=== PATIENT | female | born 1930 | race Caucasian/White ===

== ENCOUNTER 2021-02-24 11:42 | Observation (INO) | payer MEDICARE, BC ==
[2021-02-24 12:20] LABS: Basophils # (A) 0.1 k/uL (0-0.2); Basophils % (A) 1 %; Eosinophils # (A) 0.2 k/uL (0-0.7); Eosinophils % (A) 3 %; HCT 40.6 % (34.0-46.0); HGB 13.1 gm/dL (11.4-16.0); Lymphocytes # (A) 1.9 k/uL (1.0-4.8); Lymphocytes % (A) 23 %; MCH 31.4 pg (25.0-35.0); MCHC 32.3 g/dL (31.0-37.0); MCV 97.3 fL (80.0-100.0); Mean Platelet Volume 8.9; Monocytes # (A) 0.6 k/uL (0-1.0); Monocytes % (A) 7 %; Neutrophils # (A) 5.3 k/uL (1.3-7.7); Neutrophils % (A) 64 %; Platelet Count 232 k/uL (150-450); RBC 4.17 m/uL (3.80-5.40); RDW 12.8 % (11.5-15.5); WBC 8.3 k/uL (3.8-10.6)
--- NOTE | 2021-02-24 12:30 | XR ---
EXAMINATION TYPE: XR chest 2V DATE OF EXAM: 02/24/2021 COMPARISON: 04/21/2011 HISTORY: Dysrhythmia TECHNIQUE: Frontal and lateral views of the chest are obtained. FINDINGS: The lungs are grossly clear. The right peritracheal prominence is unchanged. Cardiac silhouette is unchanged. IMPRESSION: No acute cardiopulmonary process.
[2021-02-24 12:38] LABS: Albumin 4.5 g/dL (3.5-5.0); Calcium 9.5 mg/dL (8.4-10.2); Total Bilirubin 0.7 mg/dL (0.2-1.3); Total Protein 7.5 g/dL (6.3-8.2)
[2021-02-24 12:42] LABS: Magnesium 2.2 mg/dL (1.6-2.3)
--- NOTE | 2021-02-24 12:52 | CT ---
EXAMINATION TYPE: CT brain wo con DATE OF EXAM: 02/24/2021 COMPARISON: None HISTORY: Lt arm numbness CT DLP: 1080.[address] of the brain was performed. The ventricles, basal cisterns and sulci overlying the cerebral convexities demonstrate mild enlargem ent. There is no evidence for intracranial hemorrhage or sulcal effacement. There is decreased attenuation about the periventricular white matter and deep white matter of both c erebral hemispheres, compatible with chronic small vessel ischemia. Differential diagnosis does inclu de demyelination. No mass effects are seen.No midline shift. Osseous calvarium is intact. If symptoms persist consider MRI. IMPRESSION: 1. Age related atrophic and chronic small vessel ischemic change without acute intracranial process s een at this time.
[2021-02-24 13:03] LABS: INR 0.9 (<1.2); Partial Thromboplastin Time 24.4 sec (22.0-30.0); Prothrombin Time 9.8 sec (9.0-12.0)
--- NOTE | 2021-02-24 13:41 | ED ---
General Adult HPI - General Chief complaint: Arrhythmia/Palpitations Stated complaint: Abnormal EKG/Headache Time Seen by Provider: 02/24/21 11:50 Source: patient, family, RN notes reviewed, old records reviewed Mode of arrival: wheelchair Limitations: no limitations - History of Present Illness Initial comments: 89-year-old female presenting for evaluation numbness to the left face and left arm with associated pain. This began this morning. She had into her primary care office for evaluation and was sent to the emergency department for evaluation of both anginal equivalent and CVA. Her symptoms had resolved at the time my evaluation without complaint. She had no chest pain. No arm numbness or pain. No focal weakness. No fevers. She states they did check her blood pressure in the office and was quite low and the triage vitals today indicate that she is hypertensive with a systolic of 200. - Related Data Home Medications Medication Instructions Recorded Confirmed Aspirin 81 mg PO DAILY 05/19/15 02/24/21 Levothyroxine Sodium [Synthroid] 50 mcg PO DAILY 05/19/15 02/24/21 Lisinopril-Hctz 20-12.5 mg 1 tab PO DAILY 05/19/15 02/24/21 [Zestoretic 20-12.5] Metoprolol Succinate (ER) [Toprol 25 mg PO HS 02/24/21 02/24/21 Xl] Metoprolol Succinate [Toprol XL] 50 mg PO DAILY 02/24/21 02/24/21 Verapamil HCl [Verapamil ER] 240 mg PO HS 02/24/21 02/24/21 Vit C/E/Zn/Coppr/Lutein/Zeaxan 1 cap PO DAILY 02/24/21 02/24/21 [Preservision Areds 2 Softgel] Allergies Allergy/AdvReac Type Severity Reaction Status Date / Time latex Allergy Rash/Hives Verified 02/24/21 13:09 Penicillins Allergy Rash/Hives Verified 02/24/21 13:09 Srqyzws-Sbf-Cex Reductase AdvReac PAINFUL Verified 02/24/21 13:09 Inhibitor JOINTS Review of Systems ROS Statement: Those systems with pertinent positive or pertinent negative responses have been documented in the HPI. ROS Other: All systems not noted in ROS Statement are negative. Past Medical History Past Medical History: Hypertension, Thyroid Disorder Additional Past Medical History / Comment(s): MACULAR DEGENERATION, History of Any Multi-Drug Resistant Organisms: None Reported Past Surgical History: Breast Surgery, Orthopedic Surgery Additional Past Surgical History / Comment(s): LEFT SHOULDER, CARPAL TUNNEL BILATERAL, CAROTID ARTERY- RIGHT Past Anesthesia/Blood Transfusion Reactions: No Reported Reaction Past Psychological History: No Psychological Hx Reported Smoking Status: Never smoker Past Alcohol Use History: Rare Past Drug Use History: None Reported - Past Family History Mother Family Medical History: No Reported History General Exam Limitations: no limitations General appearance: alert, in no apparent distress Head exam: Present: atraumatic, normocephalic Eye exam: Present: normal appearance, PERRL, EOMI ENT exam: Present: normal exam Neck exam: Present: normal inspection. Absent: tenderness, meningismus Respiratory exam: Present: normal lung sounds bilaterally. Absent: respiratory distress, wheezes Cardiovascular Exam: Present: regular rate, normal rhythm GI/Abdominal exam: Present: soft. Absent: distended, tenderness, guarding Extremities exam: Present: normal inspection, normal capillary refill. Absent: pedal edema, calf tenderness Neurological exam: Present: alert, oriented X3, CN II-XII intact, other (NIH is 0). Absent: motor sensory deficit Psychiatric exam: Present: normal affect, normal mood Course Vital Signs 02/24/21 02/24/21 11:45 12:09 Temperature 98.1 F Pulse Rate 55 L 55 L Respiratory 18 18 Rate Blood Pressure 201/61 178/81 O2 Sat by Pulse 96 96 Oximetry EKG Findings - EKG Comments: EKG Findings:: EKG: Sinus bradycardia with PAC, left bundle branch block, rate of 57, CT interval 150, QRS duration 146, QTC 474, no ST segment elevation similar appearance compared to EKG performed in May 2015, history of left bundle branch block. Medical Decision Making - Medical Decision Making 82-year-old female with an episode of left arm numbness and pain. Sent for both workup of an anginal equivalent and possibility of CVA. Symptoms resolved, head CT negative for intracranial hemorrhage or mass effect. She has an EKG showing a left bundle branch block with history of left bundle-branch block. Troponin is negative. Laboratory testing is unremarkable. Patient remains asymptomatic while in the emergency department with a nonfocal neurologic exam. This episode may have been a pressure related TIA as they indicated that the pressure was quite low in the office. She is on 81 mg aspirin daily. She will be admitted for observation, with neurology on consult, case discussed with Dr. Lerma who will admit. - Lab Data Result diagrams: 02/24/21 12:05 02/24/21 12:05 Lab Results 02/24/21 02/24/21 02/24/21 Range/Units 12:05 12:05 12:05 WBC 8.3 (3.8-10.6) k/uL RBC 4.17 (3.80-5.40) m/uL Hgb 13.1 (11.4-16.0) gm/dL Hct 40.6 (34.0-46.0) % MCV 97.3 (80.0-100.0) fL MCH 31.4 (25.0-35.0) pg MCHC 32.3 (31.0-37.0) g/dL RDW 12.8 (11.5-15.5) % Plt Count 232 (150-450) k/uL MPV 8.9 Neutrophils % 64 % Lymphocytes % 23 % Monocytes % 7 % Eosinophils % 3 % Basophils % 1 % Neutrophils # 5.3 (1.3-7.7) k/uL Lymphocytes # 1.9 (1.0-4.8) k/uL Monocytes # 0.6 (0-1.0) k/uL Eosinophils # 0.2 (0-0.7) k/uL Basophils # 0.1 (0-0.2) k/uL PT 9.8 (9.0-12.0) sec INR 0.9 (<1.2) APTT 24.4 (22.0-30.0) sec Sodium 141 (137-145) mmol/L Potassium 5.0 (3.5-5.1) mmol/L Chloride 108 H (98-107) mmol/L Carbon Dioxide 21 L (22-30) mmol/L Anion Gap 12 mmol/L BUN 36 H (7-17) mg/dL Creatinine 1.30 H (0.52-1.04) mg/dL Est GFR (CKD-EPI)AfAm 43 (>60 ml/min/1.73 sqM) Est GFR (CKD-EPI)NonAf 37 (>60 ml/min/1.73 sqM) Glucose 99 (74-99) mg/dL Calcium 9.5 (8.4-10.2) mg/dL Magnesium 2.2 (1.6-2.3) mg/dL Total Bilirubin 0.7 (0.2-1.3) mg/dL AST 36 (14-36) U/L ALT 15 (4-34) U/L Alkaline Phosphatase 89 (38-126) U/L Troponin I (0.000-0.034) ng/mL Total Protein 7.5 (6.3-8.2) g/dL Albumin 4.5 (3.5-5.0) g/dL TSH 1.360 (0.465-4.680) mIU/L 02/24/21 Range/Units 12:05 WBC (3.8-10.6) k/uL RBC (3.80-5.40) m/uL Hgb (11.4-16.0) gm/dL Hct (34.0-46.0) % MCV (80.0-100.0) fL MCH (25.0-35.0) pg MCHC (31.0-37.0) g/dL RDW (11.5-15.5) % Plt Count (150-450) k/uL MPV Neutrophils % % Lymphocytes % % Monocytes % % Eosinophils % % Basophils % % Neutrophils # (1.3-7.7) k/uL Lymphocytes # (1.0-4.8) k/uL Monocytes # (0-1.0) k/uL Eosinophils # (0-0.7) k/uL Basophils # (0-0.2) k/uL PT (9.0-12.0) sec INR (<1.2) APTT (22.0-30.0) sec Sodium (137-145) mmol/L Potassium (3.5-5.1) mmol/L Chloride (98-107) mmol/L Carbon Dioxide (22-30) mmol/L Anion Gap mmol/L BUN (7-17) mg/dL Creatinine (0.52-1.04) mg/dL Est GFR (CKD-EPI)AfAm (>60 ml/min/1.73 sqM) Est GFR (CKD-EPI)NonAf (>60 ml/min/1.73 sqM) Glucose (74-99) mg/dL Calcium (8.4-10.2) mg/dL Magnesium (1.6-2.3) mg/dL Total Bilirubin (0.2-1.3) mg/dL AST (14-36) U/L ALT (4-34) U/L Alkaline Phosphatase (38-126) U/L Troponin I <0.012 (0.000-0.034) ng/mL Total Protein (6.3-8.2) g/dL Albumin (3.5-5.0) g/dL TSH (0.465-4.680) mIU/L Disposition Clinical Impression: TIA (transient ischemic attack) Disposition: ADMITTED IP TO THIS HOSP Condition: Stable Is patient prescribed a controlled substance at d/c from ED?: No Referrals: Laine Villagran III, MD [Primary Care Provider] - 1-2 days Decision to Admit Reason: Admit from EC Decision Date: 02/24/21 Decision Time: 13:41
[2021-02-24] MEDS ORDERED: ASPIRIN 325 MG TAB PO STA (13:42)
[2021-02-24] MEDS ORDERED: ALBUTEROL NEBULIZED 2.5 MG/3 ML INHALATION PRN (14:10)
[2021-02-24] MEDS ORDERED: hydrALAZINE HCL 25 MG TAB PO PRN (14:11)
[2021-02-24] MEDS: SODIUM CHLORIDE 0.9% 1,000 ML IV SCH (14:17)
[2021-02-24] MEDS ORDERED: METOPROLOL SUCCINATE (ER) 50 MG TAB.ER.24H PO STA (14:24)
--- NOTE | 2021-02-24 14:38 | P.HPIM ---
History of Present Illness This is a pleasant 89 result female with past medical history of hypertension and hypothyroidism. She is a patient of Dr. Villagran went to see him today. She woke up this morning complaining of from headaches on the top of her head about 4/10 that did not go away, it felt like pressure radiating to the left side numbness of her left hand which felt like sleepy. But she could not remember having any weakness. She denied chest pain or dyspnea or palpitation. No abdominal or urinary complaints. No fever. She was compliant with her blood pressure medication. However she missed her morning dose today. Because of her headache and left hand numbness went to see Dr. Villagran who referred her to emergency room of note her daughter checked her blood pressure at home it was 90/43 and heart rate was less than 45. She denies smoking, alcohol or illicit drugs On admission her blood pressure was 201/61, currently is 178/81. Rest of Vitas looks stable Labs including CBC, BMP, liver enzymes are unremarkable except for slightly elevated creatinine at 1.3, unknown baseline TSH is normal at 1.3, troponin is negative less than 0.012. Potassium is 5.0. Chest x-ray: Acute process. CT of the brain: No acute process. Has age-related atrophic and chronic small vessel ischemic changes without acute intracranial process In the emergency room patient was given aspirin 325 mg daily and started on normal saline at 75 mL/h Review of Systems CONSTITUTIONAL: No fever, no malaise, no fatigue. HEENT: No recent visual problems or hearing problems. Denied any sore throat. CARDIOVASCULAR: No orthopnea, PND, no palpitations, no syncope. PULMONARY: No shortness of breath, no cough, no hemoptysis. GASTROINTESTINAL: No diarrhea, no nausea, no vomiting, no abdominal pain. Normoactive bowel sounds. NEUROLOGICAL: No headaches, no weakness, no numbness. HEMATOLOGICAL: Denies any bleeding or petechiae. GENITOURINARY: Denies any burning micturition, frequency, or urgency. MUSCULOSKELETAL/RHEUMATOLOGICAL: Denies any joint pain, swelling, or any muscle pain. ENDOCRINE: Denies any polyuria or polydipsia. Past Medical History Past Medical History: Hypertension, Thyroid Disorder Additional Past Medical History / Comment(s): MACULAR DEGENERATION, History of Any Multi-Drug Resistant Organisms: None Reported Past Surgical History: Breast Surgery, Orthopedic Surgery Additional Past Surgical History / Comment(s): LEFT SHOULDER, CARPAL TUNNEL BILATERAL, CAROTID ARTERY- RIGHT Past Anesthesia/Blood Transfusion Reactions: No Reported Reaction Past Psychological History: No Psychological Hx Reported Smoking Status: Never smoker Past Alcohol Use History: Rare Past Drug Use History: None Reported - Past Family History Mother Family Medical History: No Reported History Medications and Allergies Home Medications Medication Instructions Recorded Confirmed Type Aspirin 162 mg PO DAILY 05/19/15 02/24/21 History Levothyroxine Sodium [Synthroid] 50 mcg PO DAILY 05/19/15 02/24/21 History Lisinopril-Hctz 20-12.5 mg 2 tab PO DAILY 05/19/15 02/24/21 History [Zestoretic 20-12.5] Albuterol Inhaler [Ventolin Hfa 2 puff INHALATION RT-QID PRN 02/24/21 02/24/21 History Inhaler] Metoprolol Succinate (ER) [Toprol 25 mg PO HS 02/24/21 02/24/21 History Xl] Metoprolol Succinate [Toprol XL] 50 mg PO DAILY 02/24/21 02/24/21 History Verapamil HCl [Verapamil ER] 240 mg PO HS 02/24/21 02/24/21 History Vit C/E/Zn/Coppr/Lutein/Zeaxan 1 cap PO DAILY 02/24/21 02/24/21 History [Preservision Areds 2 Softgel] Allergies Allergy/AdvReac Type Severity Reaction Status Date / Time latex Allergy Rash/Hives Verified 02/24/21 13:48 Penicillins Allergy Rash/Hives Verified 02/24/21 13:48 amlodipine [From Norvasc] AdvReac LEG/FEET Verified 02/24/21 13:48 EDEMA meperidine [From Demerol] AdvReac Unknown Verified 02/24/21 13:48 SENSITIVITY Rkqbmjc-Erh-Isv Reductase AdvReac PAINFUL Verified 02/24/21 13:48 Inhibitor JOINTS tramadol [From Ultram] AdvReac Unknown Verified 02/24/21 13:48 SENSITIVITY Physical Exam Vitals: Vital Signs Temp Pulse Resp BP Pulse Ox 02/24/21 12:09 55 L 18 178/81 96 02/24/21 11:45 98.1 F 55 L 18 201/61 96 Intake and Output 02/23/21 02/24/21 02/24/21 22:59 06:59 14:59 Other: Weight 66.224 kg GENERAL: The patient is alert and oriented x3, not in any acute distress. Well developed, well nourished. HEENT: Pupils are round and equally reacting to light. EOMI. No scleral icterus. No conjunctival pallor. Normocephalic, atraumatic. No pharyngeal erythema. No thyromegaly. CARDIOVASCULAR: S1 and S2 present. No murmurs, rubs, or gallops. PULMONARY: Chest is clear to auscultation, no wheezing or crackles. ABDOMEN: Soft, nontender, nondistended, normoactive bowel sounds. No palpable organomegaly. MUSCULOSKELETAL: No joint swelling or deformity. EXTREMITIES: No cyanosis, clubbing, or pedal edema. NEUROLOGICAL: Gross neurological examination did not reveal any focal deficits. SKIN: No rashes. No petechiae Results CBC & Chem 7: 02/24/21 12:05 02/24/21 12:05 Labs: Abnormal Lab Results - Last 24 Hours (Table) 02/24/21 Range/Units 12:05 Chloride 108 H (98-107) mmol/L Carbon Dioxide 21 L (22-30) mmol/L BUN 36 H (7-17) mg/dL Creatinine 1.30 H (0.52-1.04) mg/dL Assessment and Plan Assessment: Left side arm numbness with headache is resolved suspicious for TIA Hypertension, uncontrolled on admission. However patient missed her morning dose Bradycardia, secondary to aislinn, adjust dose Hypothyroidism Elevated creatinine, suspicious for acute kidney injury versus chronic kidney disease Plan: This is a pleasant 89 years old female who presents with possible TIA. Uncontrolled high blood pressure due to missed doses today. Continue with aspirin, and consult neurology service resume her blood pressure medication, nor metoprolol 50 daily down to 25 daily, continue with metoprolol 25 at bedtime. Continue with lisinopril- hydrochlorothiazide 2 pills of 20-12.5 mg. also she is on verapamil 240 mg at bedtime Keep monitor and blood pressure Labs and medication were reviewed.. Continue same treatment. Continue with symptomatic treatment. Resume home medication. Monitor lytes and vitals. DVT and GI prophylaxis. Further recommendations depends on the clinical course of the patient DVT prophylaxis: Subcutaneous heparin GI Prophylaxis: Pepcid PT/OT: Pending Prognosis is guarded. Check hemoglobin A1c, TSH and vitamin B12
[2021-02-24] MEDS: FAMOTIDINE 20 MG TAB PO SCH (15:17)
[2021-02-24] MEDS: LISINOPRIL-HCTZ 20-12.5 MG 1 EACH TAB PO SCH (15:17)
[2021-02-24] MEDS: IPRATROPIUM-ALBUTEROL 3 ML NEB INHALATION SCH ×2 (16:35→20:59)
--- NOTE | 2021-02-24 16:46 | US ---
EXAMINATION TYPE: US carotid duplex BILAT DATE OF EXAM: 02/24/2021 COMPARISON: NONE CLINICAL HISTORY: Stenosis. right endarterectomy EXAM MEASUREMENTS: RIGHT: Peak Systolic Velocity (PSV) cm/sec ----- Right CCA: 108 ----- Right ICA: 114 ----- Right ECA: 323 ICA/CCA ratio: 1.06 RIGHT: End Diastole cm/sec ----- Right CCA: 16.9 ----- Right ICA: 18.8 ----- Right ECA: 0.0 LEFT: Peak Systolic Velocity (PSV) cm/sec ----- Left CCA: 90.1 ----- Left ICA: 121 ----- Left ECA: 210 ICA/CCA ratio: 1.34 LEFT: End Diastole cm/sec ----- Left CCA: 12.7 ----- Left ICA: 26.2 ----- Left ECA: 0.0 VERTEBRALS (direction of flow): Right Vertebral: Antegrade Left Vertebral: Antegrade Rhythm: Normal Mild plaque right bifurcation. Moderate plaque left bifurcation. increased velocities right ECA, left bulb, left ECA IMPRESSION: There is antegrade flow in the vertebral arteries. There is elevated velocities in the external carot id arteries suggestive of 50-70% stenosis. The plaque formation seen to suggest 30% stenosis in the i nternal carotid arteries bilaterally. No hemodynamic stenosis in the internal carotid arteries. Criteria for Assigning % of Stenosis / Diameter reduction (Estimation based on the indirect measurements of the internal carotid artery velocities (ICA PSV). 1. Normal (no stenosis)=ICA PSV < 125 cm/s: ratio < 2.0: ICA EDV<40 cm/s. 2. Less than 50% stenosis=ICA PSV < 125 cm/s: ratio < 2.0: ICA EDV<40 cm/s. 3. 50 to 69% stenosis=ICA PSV of 125 to 230 cm/s: ration 2.0 ? 4.0: ICA EDV 40-100 cm/s. 4. Greater than 70% stenosis to near occlusion= ICA PSV > 230 cm/s: ratio > 4.0: ICA EDV > 100 cm/s. 5. Near occlusion= ICA PSV velocities may be low or undetectable: variable ratio and ICA EDV. 6. Total occlusion=unable to detect flow.
--- NOTE | 2021-02-24 17:07 | ECHOF ---
Referral Reason:Thrombus MEASUREMENTS -------- HEIGHT: 152.4 cm WEIGHT: 66.2 kg BP: 178/81 RVIDd: 2.7 cm (< 3.3) IVSd: 0.9 cm (0.6 - 1.1) LVIDd: 4.5 cm (3.9 - 5.3) LVPWd: 0.9 cm (0.6 - 1.1) IVSs: 1.5 cm LVIDs: 3.5 cm LVPWs: 1.2 cm LA Diam: 3.0 cm (2.7 - 3.8) LAESV Index (A-L): 47.80 ml/m Ao Diam: 2.8 cm (2.0 - 3.7) AV Cusp: 1.7 cm (1.5 - 2.6) MV EXCURSION: 8.460 mm (> 18.000) MV EF SLOPE: 30 mm/s (70 - 150) EPSS: 0.6 cm MV E Juan Pablo: 1.61 m/s MV DecT: 152 ms MV A Juan Pablo: 1.50 m/s MV E/A Ratio: 1.07 RAP: 5.00 mmHg RVSP: 50.35 mmHg FINDINGS -------- Sinus rhythm. This was a technically difficult study with suboptimal parasternal views. The left ventricular size is normal. Left ventricular wall thickness is normal. Overall left vent ricular systolic function is low-normal with, an EF between 50 - 55 %. The right ventricle is normal in size. LA is severely dilated >40 ml/m2 The right atrium is normal in size. Interatrial and interventricular septum intact. There is mild aortic valve sclerosis. The mitral valve leaflets are moderately thickened. Moderate mitral annular calcification present. Mild mitral regurgitation is present. The peak and mean MV gradients are 12.72mmHg 4.85mmHg as m easured by doppler. Mild mitral stenosis. Mild tricuspid regurgitation present. There is moderate pulmonary hypertension. The right ventric ular systolic pressure, as measured by Doppler, is 50.35mmHg. Trace/mild (physiologic) pulmonic regurgitation. The aortic root size is normal. Normal inferior vena cava with normal inspiratory collapse consistent with estimated right atrial pre ssure of 5 mmHg. There is no pericardial effusion. CONCLUSIONS -------- 1. The left ventricular size is normal. 2. Left ventricular wall thickness is normal. 3. Overall left ventricular systolic function is low-normal with, an EF between 50 - 55 %. 4. LA is severely dilated >40 ml/m2 5. There is mild aortic valve sclerosis. 6. The mitral valve leaflets are moderately thickened. 7. Moderate mitral annular calcification present. 8. Mild mitral regurgitation is present. 9. The peak and mean MV gradients are 12.72mmHg 4.85mmHg as measured by doppler. 10. Mild mitral stenosis. 11. Mild tricuspid regurgitation present. 12. There is moderate pulmonary hypertension. 13. The right ventricular systolic pressure, as measured by Doppler, is 50.35mmHg. 14. Trace/mild (physiologic) pulmonic regurgitation. 15. There is no pericardial effusion. DYE RANGE TENDER: Triny Petersen RDCS
--- NOTE | 2021-02-24 17:53 | P.CNNES ---
History of Present Illness Consult date: 02/24/21 Requesting physician: Anatoly Darby Reason for Consult: TIA History of Present Illness: This is a 89-year-old woman with medical history of hypertension and hypothyroidism who presented emergency department on 02/24/2021 because the headache and the paresthesia over the left upper extremity. Patient is unaccompanied by her friend as well as daughter who are bedside. Per the patient's she stated that she woke up 4:00 in the morning today the with the headache she noticed it is on the top anterior portion of the head around the frontal central relate region and she said that she woke up feeling her head that is on fire. She noticed some photophobia as well as she noticed blurry vision of both eyes. Then she noticed that her left upper extremity is the numb as well as the she felt paresthesia in the left hand. The episode lasted for about 10-15 minutes then resolved. She denies any photophobia, nausea, vomiting. She denies any similar headaches like this in the past that. She denies any fever recently, any neck pain, any focal weakness, any difficulty swallowing. She didn't notice any slurring the speech but she said that that she wasn't talking that during that time. Around 6:00 in the morning today her daughter checked her blood pressure and it was was reported was 90/43 with a heart rate less than 45. Per the patient that she checked it multiple times and she got around the same numbers. As a result she went to her primary care physician and he notified her to come to the emergency department today. Patient stated that while she was at her PCPs office systolic blood pressure was 200s. She said she is compliant with her blood pressure medication. She denies having numbness over the left side of the face. Denies any history of stroke or TIAs in the past. She denies of any headaches that she recalls similar to this. Again the right now currently she feels her headache is the much better controlled and that she only feels a nagging headache over the occipital region otherwise denies a any headaches at. She denies any feeling the that her head feels on fire or any further numbness or tingling. She denies of tobacco use, alcohol use or illicit drug use. Some of the patient's home medication consist of: Synthroid, metoprolol 50 [place] daily, another metoprolol 25 mg daily at bedtime, verapamil 240 mg at daily at bedtime, aspirin 162 mg daily (two of ASA 81mg), Lipitor pill/hydrochlorothiazide, albuterol, vitamin C. Some of the workup in the hospital consisted of: Initial blood pressure is 201/61, heart rate of 55, respiratory of 18, temperature of 98.1 Fahrenheit oral and pulse ox of 96% room air. CBC with differential is unremarkable. Chemistry panel is the creatinine is 1.30 and BUN is 36 creatinine is slightly elevated. Otherwise the rest of the panel is unremarkable. TSH is 1.360 which is considered within normal limits. CT of the head is reported as age-related atrophy And chronic small vessel ischemic change without acute intracranial process seen at this time. Upon presented to the hospital the patient's symptoms has resolved per the ED team. Review of Systems Review of system: The 12 point system was reviewed and apparent positive and negative per HPI. Past Medical History Past Medical History: Hypertension, Thyroid Disorder Additional Past Medical History / Comment(s): MACULAR DEGENERATION, History of Any Multi-Drug Resistant Organisms: None Reported Past Surgical History: Breast Surgery, Orthopedic Surgery Additional Past Surgical History / Comment(s): LEFT SHOULDER, CARPAL TUNNEL BILATERAL, CAROTID ARTERY- RIGHT Past Anesthesia/Blood Transfusion Reactions: No Reported Reaction Past Psychological History: No Psychological Hx Reported Smoking Status: Never smoker Past Alcohol Use History: Rare Past Drug Use History: None Reported - Past Family History Mother Family Medical History: No Reported History Medications and Allergies Home Medications Medication Instructions Recorded Confirmed Type Aspirin 162 mg PO DAILY 05/19/15 02/24/21 History Levothyroxine Sodium [Synthroid] 50 mcg PO DAILY 05/19/15 02/24/21 History Lisinopril-Hctz 20-12.5 mg 2 tab PO DAILY 05/19/15 02/24/21 History [Zestoretic 20-12.5] Albuterol Inhaler [Ventolin Hfa 2 puff INHALATION RT-QID PRN 02/24/21 02/24/21 History Inhaler] Metoprolol Succinate (ER) [Toprol 25 mg PO HS 02/24/21 02/24/21 History Xl] Metoprolol Succinate [Toprol XL] 50 mg PO DAILY 02/24/21 02/24/21 History Verapamil HCl [Verapamil ER] 240 mg PO HS 02/24/21 02/24/21 History Vit C/E/Zn/Coppr/Lutein/Zeaxan 1 cap PO DAILY 02/24/21 02/24/21 History [Preservision Areds 2 Softgel] Allergies Allergy/AdvReac Type Severity Reaction Status Date / Time latex Allergy Rash/Hives Verified 02/24/21 13:48 Penicillins Allergy Rash/Hives Verified 02/24/21 13:48 amlodipine [From Norvasc] AdvReac LEG/FEET Verified 02/24/21 13:48 EDEMA meperidine [From Demerol] AdvReac Unknown Verified 02/24/21 13:48 SENSITIVITY Peioouq-Lcb-Tfl Reductase AdvReac PAINFUL Verified 02/24/21 13:48 Inhibitor JOINTS tramadol [From Ultram] AdvReac Unknown Verified 02/24/21 13:48 SENSITIVITY Physical Examination - Vital Signs Vital Signs: Vital Signs Temp Pulse Resp BP Pulse Ox 02/24/21 14:46 98.1 F 58 L 16 189/89 96 02/24/21 14:35 58 L 16 189/89 96 02/24/21 13:43 98.1 F 66 18 180/75 96 02/24/21 12:09 55 L 18 178/81 96 02/24/21 11:45 98.1 F 55 L 18 201/61 96 Intake and Output 02/24/21 02/24/21 02/24/21 06:59 14:59 22:59 Other: Weight 66.224 kg GENERAL: The patient is lying in bed and is not in acute distress. CHEST: The heart rate is regular rate rhythm. No murmurs to auscultation. LUNG: Clear to auscultation bilaterally no wheezing noted throughout. Not labored breathing. ABDOMEN/GI: Bowel sounds present in all 4 quadrants. No tenderness to palpation throughout. NEUROLOGICAL: Higher mental function: The patient is awake, alert, oriented to self, place and time. Patient is following commands. No aphasia and no neglect. Cranial nerves: The pupils are round, equal and reactive to light and accommodation. Visual norman are full to confrontation throughout. Extraocular movement is intact no nystagmus is noted. Facial sensation is normal to touch throughout. The facial strength is normal throughout. Hearing is normal bilaterally to hand rub. Tongue is midline and moved [id number] without any difficulty. No dysarthria is noted. Shoulder shrug is normal bilaterally. Motor: The strength is 5 over 5 throughout. Normal tone and bulk. Cerebellum: Normal finger to nose heel to medina bilaterally. Sensation: Sensation is normal to touch throughout. Reflexes (right/left): 2+ throughout. Plantars are downgoing bilaterally. Results - Laboratory Findings CBC and BMP: 02/24/21 12:05 02/24/21 12:05 Abnormal Lab Findings: Abnormal Labs 02/24/21 12:05 Chloride 108 H Carbon Dioxide 21 L BUN 36 H Creatinine 1.30 H Assessment and Plan Assessment: * Transient episode of Cephalia with episode of left upper extremity paresthesia lasting 10-15 minutes. Unsure exactly cause. Could be due to TIA vs rule out any intracranial mass as cause vs uncontrolled hypertension (unsure why she had hypotension at presentation and now sytolic is in 200's (I would not except white coat syndrome to cause that drastic uncontrolled hypertension) * Uncontrolled Hypertension (presented with blood pressure of 201/61) * Hypothyroidism Plan: Patient was given aspirin 325 once in the ED and then started on 325mg daily. I will hold off adding any other antiplatelets until MRI Brain. Cannot start the patient on statin since the patient is ALLERGIC. Carotid duplex, 2-D echo, lipid panel, TSH is ordered and is pending. Hemoglobin A1c, folate and vitamin B12 are ordered by the primary team. Every 4 hours neuro checks Patient is on changes cardiac monitoring PT, OT and MEDICAID COLLECTION SPECIALIST are consulted. We'll defer the management of hypertension to primary team. Please avoid drastic drop in blood pressure (avoid drop >15% in 24 hours) We'll defer the rest of the medical measure to primary team. For DVT prophylaxis recommend SCD but will defer it to PCP if they want subq heparin or Lovenox. The plan is discussed with the patient and her daughter who is at bedside. Thank you for the consultation. Balwinder Ortega M.D. Neuro-hospitalist Time with Patient: Greater than 30
[2021-02-24] MEDS ORDERED: LORazepam 2 MG/ML INJ IV PRN (18:13)
--- NOTE | 2021-02-24 20:22 | MR ---
EXAMINATION TYPE: MR brain wo/w con DATE OF EXAM: 02/24/2021 COMPARISON: None HISTORY: Headache with left arm parasthesia CONTRAST: Standard multiplanar, multisequence MRI departmental protocol utilizing 7 mL intravenous Gadavist buddy olinium contrast. There is cerebral cortical atrophy. There is no mass effect nor midline shift. There is no evidence o f intracranial hemorrhage. Diffusion images show no evidence of an acute parenchymal infarct. There is some coalescent increased signal on the T2 and FLAIR images in the periventricular white mat ter around the lateral ventricles. The brainstem shows some patchy areas of increased signal in the p ons. These measure up to 6 mm. The cerebellum is intact. There is no evidence of orbital mass. The contrast images show normal enhancement of the venous sinuses. There is no pathologic enhancement in the brain. There is mild thinning of the corpus callosum. IMPRESSION: There is some cerebral atrophy. White matter signal changes around the lateral ventricles and also in the syed probably due to chronic small vessel ischemia. Demyelinating disease not excluded.
[2021-02-24] MEDS: VERAPAMIL SR 240 MG TABLET.ER PO SCH (20:27)
[2021-02-24] MEDS: HEPARIN SODIUM,PORCINE/PF 5,000 UNIT/0.5 ML SYRINGE SQ SCH (20:28)
[2021-02-24] MEDS: BUDESONIDE 0.5 MG/2 ML NEBU INHALATION SCH (20:59)
[2021-02-24] MEDS ORDERED: METOPROLOL SUCCINATE (ER) 25 MG TAB.ER.24H PO SCH (21:00)
[2021-02-24] MEDS ORDERED: FAMOTIDINE 20 MG/2 ML VIAL IV SCH (21:00)
[2021-02-25] MEDS: LEVOTHYROXINE 50 MCG TAB PO SCH (05:41)
[2021-02-25] MEDS: SODIUM CHLORIDE 0.9% 1,000 ML IV SCH ×2 (05:42→13:46)
[2021-02-25] MEDS: IPRATROPIUM-ALBUTEROL 3 ML NEB INHALATION SCH ×3 (07:50→19:45)
[2021-02-25] MEDS ORDERED: METOPROLOL SUCCINATE (ER) 25 MG TAB.ER.24H PO SCH (09:00)
[2021-02-25] MEDS ORDERED: METOPROLOL SUCCINATE (ER) 50 MG TAB.ER.24H PO SCH (09:00)
[2021-02-25] MEDS ORDERED: LISINOPRIL-HCTZ 20-12.5 MG 1 EACH TAB PO SCH (09:00)
[2021-02-25] MEDS: ASPIRIN 325 MG TAB PO SCH (10:05)
[2021-02-25] MEDS: HEPARIN SODIUM,PORCINE/PF 5,000 UNIT/0.5 ML SYRINGE SQ SCH ×2 (10:06→20:32)
[2021-02-25] MEDS: LISINOPRIL-HCTZ 20-12.5 MG 1 EACH TAB PO SCH (10:06)
[2021-02-25] MEDS: FAMOTIDINE 20 MG TAB PO SCH (10:06)
[2021-02-25 11:14] LABS: Chol/HDL Ratio 5.1; LDL Cholesterol,Calculated 126.4 mg/dL (0.0-131.0); VLDL Calculation 37.6 mg/dL (5.00-40.00)
[2021-02-25 12:36] LABS: Folate, Serum 13.4 ng/mL
--- NOTE | 2021-02-25 14:07 | P.PN ---
Subjective This is a pleasant 89 result female with past medical history of hypertension and hypothyroidism. She is a patient of Dr. Villagran went to see him today. She woke up this morning complaining of from headaches on the top of her head about 4/10 that did not go away, it felt like pressure radiating to the left side numbness of her left hand which felt like sleepy. But she could not remember having any weakness. She denied chest pain or dyspnea or palpitation. No abdominal or urinary complaints. No fever. She was compliant with her blood pressure medication. However she missed her morning dose today. Because of her headache and left hand numbness went to see Dr. Villagran who referred her to emergency room of note her daughter checked her b lood pressure at home it was 90/43 and heart rate was less than 45. She denies smoking, alcohol or illicit drugs On admission her blood pressure was 201/61, currently is 178/81. Rest of Vitas looks stable Labs including CBC, BMP, liver enzymes are unremarkable except for slightly elevated creatinine at 1.3, unknown baseline TSH is normal at 1.3, troponin is negative less than 0.012. Potassium is 5.0. Chest x-ray: Acute process. CT of the brain: No acute process. Has age-related atrophic and chronic small vessel ischemic changes without acute intracranial process In the emergency room patient was given aspirin 325 mg daily and started on normal saline at 75 mL/h 02/25/2021 Patient is awake but she feels total lightheaded secondary to Ativan she got yesterday as she contributes to Yesterday was lowered her metoprolol 50 mg daily down to 25 mg daily however her heart rate is still 37-40. We will discontinue metoprolol, keep patient on telemetry Stroke workup was unremarkable including MRI of the brain showing only cerebral atrophy with chronic small vessel ischemia although possible demyelinating disease. Carotid duplex is also negative showing bilateral stenosis of only 30%. And echocardiogram showing ejection fraction of 50-55% with moderate pulmonary hypertension Hemoglobin A1c is normal at 5.4. B12 is low at 254. Folic acid is normal at 13.4 and TSH normal at 1.7 We'll keep monitoring her blood pressure She is on aspirin 325 mg, also she is on normal saline at 75 mL performed which was lowered to 50 mL per hour if no improvement by tomorrow we will consider cardiology consult Replace vitamin B12 is ordered Review of Systems CONSTITUTIONAL: No fever, no malaise, no fatigue. HEENT: No recent visual problems or hearing problems. Denied any sore throat. CARDIOVASCULAR: No orthopnea, PND, no palpitations, no syncope. PULMONARY: No shortness of breath, no cough, no hemoptysis. GASTROINTESTINAL: No diarrhea, no nausea, no vomiting, no abdo Active Medications Generic Name Dose Route Start Last Admin Trade Name Freq PRN Reason Stop Dose Admin Albuterol Sulfate 2.5 mg 02/24/21 14:10 02/24/21 16:58 Albuterol Nebulized 2.5 Mg/3 Ml INHALATION 2.5 mg RT-QID PRN Administration Shortness Of Breath Albuterol/Ipratropium 3 ml 02/24/21 15:50 02/25/21 11:37 Ipratropium-Albuterol 3 Ml Neb INHALATION 3 ml RT-TID SEKOU Administration Aspirin 325 mg 02/25/21 09:00 02/25/21 10:05 Aspirin 325 Mg Tab PO 325 mg DAILY SEKOU Administration Budesonide 0.5 mg 02/24/21 20:00 02/24/21 20:59 Budesonide 0.5 Mg/2 Ml Nebu INHALATION 0.5 mg RT-HS SEKOU Administration Famotidine 20 mg 02/24/21 15:00 02/25/21 10:06 Famotidine 20 Mg Tab PO 20 mg Q24HR SEKOU Administration Lisinopril/HCTZ 2 each 02/24/21 14:30 02/25/21 10:06 Lisinopril-Hctz 20-12.5 Mg 1 Each Tab PO 2 each DAILY SEKOU Administration Heparin Sodium (Porcine) 5,000 unit 02/24/21 21:00 02/25/21 10:06 Heparin Sodium,Porcine/Pf 5,000 Unit/0.5 Ml Syringe SQ 5,000 unit Q12HR SEKOU Administration Hydralazine HCl 25 mg 02/24/21 14:11 Hydralazine Hcl 25 Mg Tab PO QID PRN Blood Pressure - High Sodium Chloride 1,000 mls @ 50 mls/hr 02/24/21 13:45 02/25/21 13:46 Saline 0.9% IV 75 mls/hr .Q20H SEKOU Administration Levothyroxine Sodium 50 mcg 02/25/21 06:30 02/25/21 05:41 Levothyroxine 50 Mcg Tab PO 50 mcg 0630 SEKOU Administration Verapamil HCl 240 mg 02/24/21 21:00 02/24/21 20:27 Verapamil Sr 240 Mg Tablet.Er PO 240 mg HS SEKOU Administration Objective - Vital Signs Vital signs: Vital Signs Temp 97.7 F 02/25/21 07:00 Pulse 40 L 02/25/21 11:50 Resp 18 02/25/21 07:00 BP 138/51 02/25/21 11:37 Pulse Ox 95 02/25/21 07:00 Intake & Output 02/24/21 02/25/21 02/25/21 18:59 06:59 18:59 Intake Total 700 Balance 700 Weight 66.224 kg Intake: Intake, IV Titration 500 Amount Sodium Chloride 0.9% 1, 500 000 ml @ 75 mls/hr IV . [id number] SEKOU Rx#:[id number] Oral 200 Other: # Voids 2 - Labs CBC & Chem 7: 02/24/21 12:05 02/24/21 12:05 Labs: Abnormal Lab Results - Last 24 Hours (Table) 02/25/21 Range/Units 05:17 Triglycerides 188.0 H (0.0-149.0) mg/dL Cholesterol 204 H (0-200) mg/dL Assessment and Plan Assessment: Left side arm numbness with headache is resolved suspicious for TIA Hypertension, uncontrolled on admission. However patient missed her morning dose Symptomatic bradycardia, could be due to metoprolol which was discontinued Low vitamin B12 Hypothyroidism Elevated creatinine, suspicious for acute kidney injury versus chronic kidney disease Plan: This is a pleasant 89 years old female who presents with possible TIA. Uncontrolled high blood pressure due to missed doses today. Continue with aspirin, and consult neurology service Discontinue metoprolol and keep monitor heart rate and telemetry. Consider cardiology consult if no improvement Continue with lisinopril-hydrochlorothiazide 2 pills of 20-12.5 mg. also she is on verapamil 240 mg at bedtime Keep monitor and blood pressure Replacement vitamin B12 Labs and medication were reviewed.. Continue same treatment. Continue with symptomatic treatment. Resume home medication. Monitor lytes and vitals. DVT and GI prophylaxis. Further recommendations depends on the clinical course of the patient DVT prophylaxis: Subcutaneous heparin GI Prophylaxis: Pepcid PT/OT: Pending Prognosis is guarded.
--- NOTE | 2021-02-25 14:08 | P.PN ---
Subjective Progress Note Date: 02/25/21 Patient seen at bedside and the she stated that she has no further headaches and denies any focal weakness, numbness, visual disturbance, difficulty getting her words out. She is accompanied with her daughter was at bedside and she stated that the the patient is not complaining of any headaches and she denies of any neurological problems. Her daughter stated that her blood pressure has been labile as well as the nurse stated that her blood pressure has been labile times it is very low and times is extremely high. Objective - Vital Signs Vital signs: Vital Signs Temp 97.7 F 02/25/21 07:00 Pulse 40 L 02/25/21 11:50 Resp 18 02/25/21 07:00 BP 138/51 02/25/21 11:37 Pulse Ox 95 02/25/21 07:00 Intake & Output 02/24/21 02/25/21 02/25/21 18:59 06:59 18:59 Intake Total 700 Balance 700 Weight 66.224 kg Intake: Intake, IV Titration 500 Amount Sodium Chloride 0.9% 1, 500 000 ml @ 75 mls/hr IV . [id number] [facility] Rx#:[id number] Oral 200 Other: # Voids 2 - Exam GENERAL: The patient is lying in bed and is not in acute distress. NEUROLOGICAL: Higher mental function: The patient is awake, alert, oriented to self, place and time. Patient is following commands. No aphasia and no neglect. Cranial nerves: The pupils are round, equal and reactive to light and accommodation. Visual norman are full to confrontation throughout. Extraocular movement is intact no nystagmus is noted. Facial sensation is normal to touch throughout. The facial strength is normal throughout. Hearing is normal bilaterally to hand rub. Tongue is midline and moved [id number] without any difficulty. No dysarthria is noted. Shoulder shrug is normal bilaterally. Motor: The strength is 5 over 5 throughout. Normal tone and bulk. Cerebellum: Normal finger to nose heel to medina bilaterally. Sensation: Sensation is normal to touch throughout. Reflexes (right/left): 2+ throughout. Plantars are downgoing bilaterally. WORK-UP: MRI the brain is reported as there is some cerebral atrophy. White matter si gnal changes around the lateral ventricles and also in the syed probably due to chronic small vessel ischemia. The mind disease not excluded. Carotid duplex is reported as there is antegrade flow in the vertebral arteries. There is elevated velocities in the external carotid artery suggestive of 50- 70% stenosis. The plaque formation seen to suggest 30% stenosis in the internal carotid arteries bilaterally. No hemodynamic stenosis in the internal carotid artery at. 2-D echo was reported as left ventricle wall thickness is normal. Overall left ventricle systolic function with ejection fraction 50-55%. Left atrium is severely dilated. TSH is 1.360 which is considered within normal limits Vitamin B12 is 254 which is considered low normal Folate is 13.4 which is considered within normal limits. Hemoglobin A1c is 5.4 which is within normal limits. - Labs CBC & Chem 7: 02/24/21 12:05 02/24/21 12:05 Labs: Abnormal Lab Results - Last 24 Hours (Table) 02/25/21 Range/Units 05:17 Triglycerides 188.0 H (0.0-149.0) mg/dL Cholesterol 204 H (0-200) mg/dL Assessment and Plan Assessment: * Transient episode of Cephalia with episode of left upper extremity paresthesia lasting 10-15 minutes. Seems due to labile blood pressure. * Labile Hypertension (presented with blood pressure of 201/61) * Low normal vitamin B12 (254) * Hypothyroidism Plan: * Currenlty on ASA 325mg daily. Cannot start the patient on statin since the patient is ALLERGIC. * Because of low normal vitamin B12 she was started on the vitamin B12 1000 g daily with an IM injection today by primary team which I agree with management. * Every 4 hours neuro checks * PT, OT and DRAFT ROLLER PICKER are consulted. * We'll defer the management of hypertension to primary team. Cardiology team is consulted. * I notified the patient as well as the daughter since the patient doesn't have headaches and the unlikely this is doing due to an aneurysm but we can get it if they want to pursue with that but they declined. There were notified regarding the external carotid artery increased velocity recommend to for patient to follow up with a vascular surgeon as an outpatient * We'll defer the rest of the medical measure to primary team. * For DVT prophylaxis recommend SCD but will defer it to PCP if they want subq heparin or Lovenox. The plan is discussed with the patient and her daughter who is at bedside. There is no further work-up. Will sign off. Please notify neurology if any neurological issues. Balwinder Ortega M.D. Neuro-hospitalist Time with Patient: Less than 30
[2021-02-25] MEDS ORDERED: CYANOCOBALAMIN 1,000 MCG/ML 1 ML VIAL IM ONE (14:30)
[2021-02-25] MEDS: VERAPAMIL SR 240 MG TABLET.ER PO SCH (19:39)
[2021-02-25] MEDS: BUDESONIDE 0.5 MG/2 ML NEBU INHALATION SCH (19:45)
[2021-02-25] MEDS ORDERED: LORazepam 1 MG TAB PO PRN (21:59)
[2021-02-26] MEDS: LEVOTHYROXINE 50 MCG TAB PO SCH (05:36)
[2021-02-26] MEDS: IPRATROPIUM-ALBUTEROL 3 ML NEB INHALATION SCH ×2 (05:55→10:57)
[2021-02-26 07:36] LABS: African American GFR (CKD) 46 (>60 ml/min/1.73 sqM); Anion Gap 6 mmol/L; Blood Urea Nitrogen 25 mg/dL (7-17); Calcium 9.2 mg/dL (8.4-10.2); Carbon Dioxide 27 mmol/L (22-30); Chloride 107 mmol/L (98-107); Glucose 104 mg/dL (74-99); Non-African American GFR(CKD) 40 (>60 ml/min/1.73 sqM); Potassium 3.7 mmol/L (3.5-5.1); Sodium 140 mmol/L (137-145)
[2021-02-26 08:31] VITALS: BP 145/55; RESP 18; TEMP 97.6
[2021-02-26] MEDS ORDERED: CYANOCOBALAMIN 500 MCG TAB PO SCH (09:00)
[2021-02-26] MEDS: HEPARIN SODIUM,PORCINE/PF 5,000 UNIT/0.5 ML SYRINGE SQ SCH (09:01)
[2021-02-26] MEDS: ASPIRIN 325 MG TAB PO SCH (09:01)
[2021-02-26] MEDS: LISINOPRIL-HCTZ 20-12.5 MG 1 EACH TAB PO SCH (09:01)
[2021-02-26] MEDS: FAMOTIDINE 20 MG TAB PO SCH (09:01)
[2021-02-26] MEDS ORDERED: hydrALAZINE HCL 25 MG TAB PO SCH ×2 (10:26→21:00)
--- NOTE | 2021-02-26 10:30 | P.CRDCN ---
History of Present Illness History of present illness: HISTORY OF PRESENTING ILLNESS This is a pleasant 89-year-old female past medical history significant for moderate mitral regurgitation, hypertension, hypothyroidism, dyslipidemia, former nicotine dependence, ischemic cardiomyopathy, mild carotid stenosis. She follows in the office with Dr. Durbin last seen in 01/2019. We have been asked to see in consultation for bradycardia. Patient is seen and examined at bedside, no acute distress. She presented emergency department on 02/24/2021 because the headache and the paresthesia over the left upper extremity. Patient states that on 02/24 she woke up in the morning with an increased headache, photophobia, blurry vision and she noticed her left eye pressure many felt numb. The episode lasted for about 10-15 minutes then resolved. Her daughter checked her blood pressure and it was was reported was 90/43 with a heart rate less than 45. Per the patient that she checked it multiple times and she got around the same numbers. Neurology has evaluated the patient and diagnosed the patient and believe this could be due to TIA vs rule out any intracranial mass as cause vs uncontrolled hypertension. CT of the brain revealed age-related atrophic and chronic small vessel ischemic change without acute intracranial process. MRI the brain is reported as there is some cerebral atrophy. White matter signal changes around the lateral ventricles and also in the syed probably due to chronic small vessel ischemia. On 02/25, it was reported that patient was bradycardic HR 30-40s. Telemetry reviewed patient's heart rate low 45. She remains in sinus bradycardia heart rate 40 to 60s. She denies any chest pain, lightheadedness, dizziness, palpitations, shortness of breath, nausea, vomiting. Current home cardiac medications include verapamil 240 mg nightly, metoprolol succinate 50 mg in the morning and 25 mg at night, lisinoprilhydroch lorothiazide 2012 0.5 mg daily. Last dose of metoprolol succinate 25 mg was 02/25 at 10 AM. Last dose of verapamil was on 02/25 at 7:30 PM. DIAGNOSTICS EKG reveals on admission revealed sinus bradycardia with PVCs, left bundle branch block, heart rate 57. Prior EKG patient in sinus rhythm heart rate 81 with a left bundle branch block Telemetry tracings indicate She remains in sinus bradycardia heart rate 40s to 60s. HR low 45. Echocardiogram revealed EF of 50-55%, LA severely dilated, mild aortic valve sclerosis, mild mitral regurgitation, mild mitral stenosis with peak/mean gradient of 12 mmHg/4mmHg, moderate pulmonary hypertension with an RVSP of 50 mmHg Chest xray no acute cardiopulmonary process Most recent Lexiscan stress test 05/2015 was negative for reversible ischemia Laboratory reviewed, CBC unremarkable, sodium 140, potassium 3.7, BUN 25, serum creatinine 1.22, magnesium 2.2, troponin negative 3, triglycerides 188, cholesterol 204, LDL 126, HDL 40, TSH within normal limits REVIEW OF SYSTEMS At the time of my exam: CONSTITUTIONAL: Denies fever or chills. CARDIOVASCULAR: Denies chest pain, shortness of breath, orthopnea, PND or palpitations. RESPIRATORY: Denies cough. GASTROINTESTINAL: Denies abdominal pain, diarrhea, constipation, nausea or vomiting. MUSCULOSKELETAL: Denies myalgias. NEUROLOGIC: left-sided numbness and tingling, headache Denies weakness. ENDOCRINE: Denies fatigue, weight change, polydipsia or polyurina. GENITOURINARY: Denies burning, hematuria or urgency with micturation. HEMATOLOGIC: Denies history of anemia or bleeding. PHYSICAL EXAMINATION Blood pressure 145/55 heart rate 46 afebrile and maintaining oxygen esstliii16% on room air CONSTITUTIONAL: No apparent distress. HEENT: Head is normocephalic. Pupils are equal, round. Sclerae anicteric. Mucous membranes of the mouth are moist. No JVD. No carotid bruit. CHEST EXAMINATION: Lungs are clear to auscultation. No chest wall tenderness is noted on palpation or with deep breathing. HEART EXAMINATION: Regular rate and rhythm. S1, S2 heard. Systolic murmur at apex ABDOMEN: Soft, nontender. Positive bowel sounds. EXTREMITIES: 2+ peripheral pulses, no lower extremity edema and no calf tenderness. NEUROLOGIC EXAMINATION: Patient is awake, alert and oriented x3. ASSESSMENT Sinus bradycardia, asymptomatic Episode of left upper extremity paresthesia and headache Hypertension Dyslipidemia Former nicotine dependence History of ischemic cardiomyopathy with recovered EF 50-55% Carotid stenosis PLAN Bradycardia most likely related to patient's Toprol XL and Verapamil. We will hold this medications Patient is allergic to amlodipine, with reaction of increased edema, We will start hydralazine for blood pressure control and continue Lisinopril/with thiazide 2012.5 mg daily From cardiology perspective patient stable to be discharged home. Follow-up in the outpatient setting with Dr. Durbin for further management of medication changes if indicated. Thank you kindly for this consultation Nurse Practitioner note has been reviewed, I agree with a documented findings and plan of care. Patient was seen and examined. Past Medical History Past Medical History: Hypertension, Thyroid Disorder Additional Past Medical History / Comment(s): MACULAR DEGENERATION, History of Any Multi-Drug Resistant Organisms: None Reported Past Surgical History: Breast Surgery, Orthopedic Surgery Additional Past Surgical History / Comment(s): LEFT SHOULDER, CARPAL TUNNEL BILATERAL, CAROTID ARTERY- RIGHT Past Anesthesia/Blood Transfusion Reactions: No Reported Reaction Past Psychological History: No Psychological Hx Reported Smoking Status: Never smoker Past Alcohol Use History: Rare Past Drug Use History: None Reported - Past Family History Mother Family Medical History: No Reported History Medications and Allergies Home Medications Medication Instructions Recorded Confirmed Type Aspirin 162 mg PO DAILY 05/19/15 02/24/21 History Levothyroxine Sodium [Synthroid] 50 mcg PO DAILY 05/19/15 02/24/21 History Lisinopril-Hctz 20-12.5 mg 2 tab PO DAILY 05/19/15 02/24/21 History [Zestoretic 20-12.5] Albuterol Inhaler [Ventolin Hfa 2 puff INHALATION RT-QID PRN 02/24/21 02/24/21 History Inhaler] Vit C/E/Zn/Coppr/Lutein/Zeaxan 1 cap PO DAILY 02/24/21 02/24/21 History [Preservision Areds 2 Softgel] Allergies Allergy/AdvReac Type Severity Reaction Status Date / Time latex Allergy Rash/Hives Verified 02/24/21 13:48 Penicillins Allergy Rash/Hives Verified 02/24/21 13:48 amlodipine [From Norvasc] AdvReac LEG/FEET Verified 02/24/21 13:48 EDEMA meperidine [From Demerol] AdvReac Unknown Verified 02/24/21 13:48 SENSITIVITY Kbvflmh-[id number]-Igb Reductase AdvReac PAINFUL Verified 02/24/21 13:48 Inhibitor JOINTS tramadol [From Ultram] AdvReac Unknown Verified 02/24/21 13:48 SENSITIVITY Physical Exam Vitals: Vital Signs Temp Pulse Pulse Resp BP Pulse Ox 02/26/21 08:30 97.6 F 46 L 18 145/55 96 02/26/21 02:09 97.9 F 59 L 16 146/62 96 02/25/21 22:18 189/68 02/25/21 20:00 16 02/25/21 19:58 54 L 02/25/21 19:45 97.8 F 54 L 55 L 16 188/80 96 02/25/21 15:34 97.4 F L 47 L 18 178/52 98 02/25/21 14:00 55 L 16 02/25/21 11:50 40 L 02/25/21 11:38 40 L 02/25/21 11:37 37 L 138/51 Intake and Output 02/25/21 02/26/21 02/26/21 22:59 06:59 14:59 Intake Total 50 700 Balance 50 700 Intake: Intake, IV Titration 50 500 Amount Sodium Chloride 0.9% 1, 50 500 000 ml @ 50 mls/hr IV . Q20H [facility] Rx#:[id number] Oral 200 Other: Voiding Method Toilet # Voids 2 Results 02/24/21 12:05 02/26/21 07:03 Lipids 02/25/21 Range/Units 05:17 Triglycerides 188.0 H (0.0-149.0) mg/dL Cholesterol 204 H (0-200) mg/dL HDL Cholesterol 40.0 (40.0-60.0) mg/dL Cholesterol/HDL Ratio 5.10 Comprehensive Metabolic Panel 02/26/21 Range/Units 07:03 Sodium 140 (137-145) mmol/L Potassium 3.7 (3.5-5.1) mmol/L Chloride 107 (98-107) mmol/L Carbon Dioxide 27 (22-30) mmol/L BUN 25 H (7-17) mg/dL Creatinine 1.22 H (0.52-1.04) mg/dL Glucose 104 H (74-99) mg/dL Calcium 9.2 (8.4-10.2) mg/dL Current Medications Generic Name Dose Route Start Last Admin Trade Name Freq PRN Reason Stop Dose Admin Albuterol Sulfate 2.5 mg 02/24/21 14:10 02/24/21 16:58 Albuterol Nebulized 2.5 Mg/3 Ml INHALATION 2.5 mg RT-QID PRN Administration Shortness Of Breath Albuterol/Ipratropium 3 ml 02/24/21 15:50 02/26/21 05:55 Ipratropium-Albuterol 3 Ml Neb INHALATION Not Given RT-TID SEKOU Aspirin 325 mg 02/25/21 09:00 02/26/21 09:01 Aspirin 325 Mg Tab PO 325 mg DAILY SEKOU Administration Budesonide 0.5 mg 02/24/21 20:00 02/25/21 19:45 Budesonide 0.5 Mg/2 Ml Nebu INHALATION 0.5 mg RT-HS SEKOU Administration Cyanocobalamin 1,000 mcg 02/26/21 09:00 02/26/21 09:01 Cyanocobalamin 500 Mcg Tab PO 1,000 mcg DAILY SEKOU Administration Famotidine 20 mg 02/24/21 15:00 02/26/21 09:01 Famotidine 20 Mg Tab PO 20 mg Q24HR SEKOU Administration Lisinopril/HCTZ 2 each 02/24/21 14:30 02/26/21 09:01 Lisinopril-Hctz 20-12.5 Mg 1 Each Tab PO 2 each DAILY SEKOU Administration Heparin Sodium (Porcine) 5,000 unit 02/24/21 21:00 02/26/21 09:01 Heparin Sodium,Porcine/Pf 5,000 Unit/0.5 Ml Syringe SQ 5,000 unit Q12HR SEKOU Administration Hydralazine HCl 25 mg 02/26/21 21:00 Hydralazine Hcl 25 Mg Tab PO BID SEKOU Sodium Chloride 1,000 mls @ 50 mls/hr 02/24/21 13:45 02/25/21 13:46 Saline 0.9% IV 75 mls/hr .Q20H SEKOU Administration Levothyroxine Sodium 50 mcg 02/25/21 06:30 02/26/21 05:36 Levothyroxine 50 Mcg Tab PO 50 mcg 0630 SEKOU Administration Lorazepam 1 mg 02/25/21 21:59 02/25/21 22:57 Lorazepam 1 Mg Tab PO 1 mg Q6H PRN Administration Anxiety Intake and Output 02/25/21 02/26/21 02/26/21 22:59 06:59 14:59 Intake Total 50 700 Balance 50 700 Intake: Intake, IV Titration 50 500 Amount Sodium Chloride 0.9% 1, 50 500 000 ml @ 50 mls/hr IV . Q20H SEKOU Rx#:[id number] Oral 200 Other: Voiding Method Toilet # Voids 2 02/24/21 12:05 02/26/21 07:03
[2021-02-26 11:09] VITALS: PULSE 46
--- NOTE | 2021-02-26 21:17 | P.DS ---
Providers Date of admission: 02/24/21 13:34 Attending physician: Ramesh Lerma MD Consults: 02/24/21 13:43 Consult Physician Routine Consulting Provider: Balwinder Ortega Consult Reason/Comments: TIA Do you want consulting provider notified?: Yes 02/25/21 16:30 Consult Physician Routine Consulting Provider: Ellis Durbin Consult Reason/Comments: heart rate Do you want consulting provider notified?: Yes Primary care physician: Laine Villagran Hospital Course: Diagnoses: Hypertension on admission and bradycardia secondary to medication effect. Metoprolol and verapamil were discontinued Left side arm numbness with headache is resolved suspicious for TIA Hypertension Symptomatic bradycardia, could be due to metoprolol which was discontinued Low vitamin B12, been replaced Hypothyroidism Elevated creatinine, suspicious for acute kidney injury versus chronic kidney disease Hospital course: This is a pleasant 89 result female with past medical history of hypertension and hypothyroidism. She is a patient of Dr. Villagran went to see him today. She woke up this morning complaining of from headaches on the top of her head about 4/10 that did not go away, it felt like pressure radiating to the left side numbness of her left hand which felt like sleepy. But she could not remember having any weakness. She denied chest pain or dyspnea or palpitation. No abdominal or urinary complaints. No fever. She was compliant with her blood pressure medication. However she missed her morning dose today. Because of her headache and left hand numbness went to see Dr. Villagran who referred her to emergency room of note her daughter checked her blood pressure at home it was 90/43 and heart rate was less than 45. While on telemetry her 100 was 30s and 40s Metoprolol and verapamil were discontinued and her heart rate increased to high 50s and 60s. Patient became asymptomatic with correction of her heart rate at controlling her blood pressure Patient was evaluated by associate merchant and cleared her for discharge with recommendation for follow-up as an outpatient with Dr. Lora, patient and daughter at bedside agree with this recommendation Problems and management plan were discussed with the patient and they verbalized understanding and acceptance Patient was found stable and can be discharged home however he needs follow-up as an outpatient. Patient was instructed to follow up with PCP Dr. Villagran within one week and patient agrees Patient was instructed to follow up with Dr. Durbin in 1-2 weeks and she agrees with the appointments made for her on Follow-up with the neurologist Dr. Higgins in 1-2 weeks Physical exam Gen: patient is a AAOx3, no distress CVS: S1-S2, RRR, no murmur Lungs: B/L CTA, no wheezing Abdomen: soft, no distention, no tenderness, positive bowel sounds Extremity: no leg edema or induration Time spent more than 35 minutes Daughter at bedside Patient Condition at Discharge: Stable Plan - Discharge Summary Discharge Rx Participant: No New Discharge Prescriptions: New hydrALAZINE HCL [Apresoline] 25 mg PO BID #60 tab Cyanocobalamin [Vitamin B-12] 1,000 mcg PO DAILY #30 tab Continue Lisinopril-Hctz 20-12.5 mg [Zestoretic 20-12.5] 2 tab PO DAILY Levothyroxine Sodium [Synthroid] 50 mcg PO DAILY Aspirin 162 mg PO DAILY Albuterol Inhaler [Ventolin Hfa Inhaler] 2 puff INHALATION RT-QID PRN PRN Reason: Shortness Of Breath Vit C/E/Zn/Coppr/Lutein/Zeaxan [Preservision Areds 2 Softgel] 1 cap PO DAILY Discontinued Verapamil HCl [Verapamil ER] 240 mg PO HS Metoprolol Succinate [Toprol XL] 50 mg PO DAILY Metoprolol Succinate (ER) [Toprol Xl] 25 mg PO HS Discharge Medication List Aspirin 162 mg PO DAILY 05/19/15 [History] Levothyroxine Sodium [Synthroid] 50 mcg PO DAILY 05/19/15 [History] Lisinopril-Hctz 20-12.5 mg [Zestoretic 20-12.5] 2 tab PO DAILY 05/19/15 [History] Albuterol Inhaler [Ventolin Hfa Inhaler] 2 puff INHALATION RT-QID PRN 02/24/21 [History] Vit C/E/Zn/Coppr/Lutein/Zeaxan [Preservision Areds 2 Softgel] 1 cap PO DAILY 02/24/21 [History] Cyanocobalamin [Vitamin B-12] 1,000 mcg PO DAILY #30 tab 02/26/21 [Rx] hydrALAZINE HCL [Apresoline] 25 mg PO BID #60 tab 02/26/21 [Rx] Follow up Appointment(s)/Referral(s): Laine Villagran III, MD [Primary Care Provider] - 03/02/21 2:30 pm (SALES REVIEW CLERK [place]) Gretel Peterson MD [REFERRING] - 2 Weeks (neurologist Office to call with appointment time) Ellis Durbin MD [STAFF PHYSICIAN] - 03/10/21 4:15 pm Patient Instructions/Handouts: Transient Ischemic Attack (DC), Heart Healthy Diet (DC), Hypertension (DC) Activity/Diet/Wound Care/Special Instructions: heart healthy diet activity is restricted till you see your doctor Discharge Disposition: HOME SELF-CARE
== END 2021-02-26 13:53 | disposition home or self-care (01) ==
LOC: EC 11:42 → 6NMEDSUR 13:34
PROVIDERS: ADMIT Internal Medicine; ATTEND Internal Medicine
DX: T50.905A Adverse effect of unspecified drugs, medicaments and biological substances, initial encounter (principal); I10 Essential (primary) hypertension; R00.1 Bradycardia, unspecified; R20.0 Anesthesia of skin; R51.9 Headache, unspecified; I20.8 Other forms of angina pectoris; Z79.82 Long term (current) use of aspirin; Z79.890 Hormone replacement therapy; Z79.899 Other long term (current) drug therapy; Z88.0 Allergy status to penicillin; Z91.040 Latex allergy status; H35.30 Unspecified macular degeneration; Z98.890 Other specified postprocedural states; I44.7 Left bundle-branch block, unspecified; E03.9 Hypothyroidism, unspecified; R79.89 Other specified abnormal findings of blood chemistry; I67.82 Cerebral ischemia; Z88.5 Allergy status to narcotic agent
CPT/HCPCS: 99285; 96361 ×3; 96372 ×3; 96374; 36415; 94640 ×5; 93005; 93306; 97162; 97166; 80061; 80053; 80048; 84443 ×2; 82607; 82746; 83735; 84484; 85025; 85610; 85730; 83036; 71046; 93880; 70450; 70553; G0378 ×3; J2060; J3420; A9585; J1644 ×3